=== PATIENT | male | born 1980 | race Caucasian/White ===

== ENCOUNTER 2017-06-23 09:09 | Emergency (ER) | payer BC, OTHER ==
[2017-06-23 10:08] VITALS: BP 122/67
--- NOTE | 2017-06-23 10:23 | UC ---
Hand/Wrist HPI - HPI Summary HPI Summary: patient has 1st and 2nd met pain and scaphoid tenderness and unknown mechanism, no fall or trauma. lasted for past few days - History Of Current Complaint Chief Complaint: UCUpperExtremity Stated Complaint: LEFT HAND PAIN Time Seen by Provider: 06/23/17 10:11 Hx Obtained From: Patient ?: No Onset/Duration: Sudden Onset, Lasting Days Severity Initially: Mild Severity Currently: Moderate Pain Intensity: 4 Character Of Pain: Aching Aggravating Factor(s): Movement Alleviating Factor(s): Nothing Associated Signs And Symptoms: Positive: Weakness - Risk Factors Compartment Syndrome Risk Factors: Pain - Allergies/Home Medications Allergies/Adverse Reactions: Allergies Allergy/AdvReac Type Severity Reaction Status Date / Time bacitracin Allergy Rash Verified 06/23/17 10:04 [From Neosporin ([id number])] neomycin Allergy Rash Verified 06/23/17 10:04 [From Neosporin ([id number])] polymyxin B Allergy Rash Verified 06/23/17 10:04 [From Neosporin ([id number]-uha-[id number])] bupropion [From Wellbutrin] AdvReac Anger and Verified 06/23/17 10:04 Unusual Dreams Home Medications: Home Medications Beta Rena 1 tab PO DAILY 06/23/17 [History] Vitamin THERAPEUTIC TAB* [Theragran TAB*] 1 tab PO DAILY 06/23/17 [History Confirmed 06/23/17] PMH/Surg Hx/FS Hx/Imm Hx Previously Healthy: Yes - Surgical History Surgical History: None - Family History Known Family History: Positive: Hypertension - Social History Alcohol Use: Weekly Substance Use Type: None Smoking Status (MU): Former Smoker Length of Time of Smoking/Using Tobacco: 1/2 PPD x 20+ Years When Did the Patient Quit Smoking/Using Tobacco: ~2013 Review of Systems Constitutional: Negative Skin: Negative Eyes: Negative ENT: Negative Respiratory: Negative Cardiovascular: Negative Gastrointestinal: Negative Genitourinary: Negative Motor: Negative Neurovascular: Negative Musculoskeletal: Arthralgia, Myalgia Neurological: Negative Psychological: Negative Is Patient Immunocompromised?: No All Other Systems Reviewed And Are Negative: Yes Physical Exam Triage Information Reviewed: Yes Appearance: Well-Appearing, Well-Nourished, Pain Distress Vital Signs: Initial Vital Signs Temp 98.4 F 06/23/17 10:01 Pulse 72 06/23/17 10:01 Resp 16 06/23/17 10:01 BP 122/67 06/23/17 10:01 Pulse Ox 99 06/23/17 10:01 Vital Signs Reviewed: Yes Eye Exam: Normal ENT Exam: Normal Dental Exam: Normal Neck exam: Normal Respiratory Exam: Normal Cardiovascular Exam: Normal Abdominal Exam: Normal Bowel Sounds: Positive: Present Musculoskeletal: Positive: Other: - prom painfree, AROM full, RROM painful in thumb adduction and pain radiated to scaphoid area, Neurological Exam: Normal Psychological Exam: Normal Skin Exam: Normal Hand/Wrist Course/Dx - Course Course Of Treatment: hx obtained, exam performed, meds reviewed, xray obtained, neg for fracture, - Differential Dx/Diagnosis Differential Diagnosis/HQI/PQRI: Contusion, Dislocation, Sprain, Strain, Tendonitis Provider Diagnoses: hand pain, muscle strain of the left hand Discharge - Discharge Plan Condition: Stable Disposition: HOME Patient Education Materials: Muscle Strain (ED) Referrals: MAK Walker [Primary Care Provider] - Dilan Luther MD [Medical Doctor] - Additional Instructions: . I recommend warm water soaks, 2-3 times a day. stretch the fingers thumbs and forearm 2-3 times a day. if the pain is not improving with stretching and rest follow up with the orthopedic.
--- NOTE | 2017-06-23 10:40 | RAD ---
INDICATION: Pain at the first and second metacarpal with scaphoid tenderness x4 days without reported injury COMPARISON: None. TECHNIQUE: 4 views left wrist. REPORT: The visualized bones are properly aligned and well corticated. The joint spaces are normal.There is no fracture, dislocation or other focal osseous abnormality. IMPRESSION: Normal radiograph of the left wrist. If the patient's symptoms persist, follow-up imaging is recommended.
== END 2017-06-23 11:04 | disposition home or self-care (01) ==
LOC: UCCORT 09:09
DX: S63.92XA Sprain of unspecified part of left wrist and hand, initial encounter (principal); X58.XXXD Exposure to other specified factors, subsequent encounter; Y92.9 Unspecified place or not applicable; Z87.891 Personal history of nicotine dependence
CPT/HCPCS: 99211; G0463

== ENCOUNTER 2017-08-07 13:12 | Emergency (ER) | payer BC, OTHER ==
[2017-08-07 15:16] VITALS: BP 131/90
[2017-08-07] MEDS ORDERED: Ondansetron ODT TAB* 4 MG PO ONE (15:48)
[2017-08-07] MEDS ORDERED: Famotidine TAB* 20 MG PO ONE (15:50)
--- NOTE | 2017-08-07 20:40 | UC ---
Forrest Deleon Nilda, scribed for Francis Baron MD on 08/07/17 at 1542 . Abdominal Pain Male HPI - HPI Summary HPI Summary: This patient is a 37 year old M presenting to [facility] [place] with a chief complaint of constant diffuse abd pain with diarrhea (watery, 12x today, black-dark brown) since this morning. The patient rates the cramping pain 4/10 in severity. Symptoms aggravated by nothing and alleviated by BM. Patient reports body aches , weakness, and nausea, but denies mucous in stool, bloody stool, fever, chills , and vomiting. He notes he was recently at a water park this weekend with family and everyone ate the same meals. He is the only person in the family presenting with symptoms. Patient denies recent colonoscopy, abx usage, and recent sick contacts. Patient notes he takes NSAIDs once per week for headaches and that he has had similar symptoms of diarrhea before. He is currently on medications for HTN as well as Lexapro for anxiety. Patient states he took Pepto Bismal this morning and that today he ate a banana, bread, and water. - History of Current Complaint Chief Complaint: UCGeneralIllness Stated Complaint: DIARRHEA, AND ACHES Time Seen by Provider: 08/07/17 15:22 Hx Obtained From: Patient Onset/Duration: Sudden Onset, Lasting Hours, Still Present Timing: Constant Severity Currently: Moderate Pain Intensity: 4 Pain Scale Used: 0-10 Numeric Location: Diffuse Radiates: No Character: Cramping Aggravating Factor(s): Nothing Alleviating Factor(s): Other - BM Associated Signs And Symptoms: Positive: Other - reports body aches, weakness, and nausea, but denies mucous in stool, bloody stool, fever, chills, and vomiting. - Allergies/Home Medications Allergies/Adverse Reactions: Allergies Allergy/AdvReac Type Severity Reaction Status Date / Time bacitracin Allergy Rash Verified 08/07/17 15:17 [From Neosporin ([id number])] neomycin Allergy Rash Verified 08/07/17 15:17 [From Neosporin (rub-tld-[id number])] polymyxin B Allergy Rash Verified 08/07/17 15:17 [From Neosporin (dvd-pmd-[id number])] bupropion [From Wellbutrin] AdvReac Anger and Verified 08/07/17 15:17 Unusual Dreams PMH/Surg Hx/FS Hx/Imm Hx Cardiovascular History: Hypertension Psychological History: Anxiety - Surgical History Surgical History: Yes Surgery Procedure, Year, and Place: heart catherization 2013 - Family History Known Family History: Positive: Cardiac Disease, Hypertension - Social History Alcohol Use: Rare Substance Use Type: None Smoking Status (MU): Former Smoker Length of Time of Smoking/Using Tobacco: 1/2 PPD x 20+ Years When Did the Patient Quit Smoking/Using Tobacco: ~2013 Review of Systems Constitutional: Other - negative fever and chills Gastrointestinal: Abdominal Pain, Diarrhea, Nausea, Other - negative vomiting, bloody stool, mucous in stool Musculoskeletal: Myalgia Neurological: Weakness All Other Systems Reviewed And Are Negative: Yes Physical Exam - Summary Physical Exam Summary: VITAL SIGNS: Reviewed. GENERAL: Patient is a well developed and nourished M who is lying comfortable in the stretcher. Patient is not in any acute respiratory distress. HEAD AND FACE: Normocephalic EYES: PERRLA, EOMI x 2. EARS: Hearing grossly intact. MOUTH: Oropharynx within normal limits. NECK: Supple, trachea is midline, no adenopathy, no JVD, no carotid bruit. CHEST: Symmetric, no tenderness at palpation LUNGS: Clear to auscultation bilaterally. No wheezing or crackles. CVS: Regular rate and rhythm, S1 and S2 present, no murmurs or gallops appreciated. ABDOMEN: Soft, non-tender. Increased bowel sounds diffusely. No abdominal abnormal pulsations. Rectal Exam: normal sphincter tone, no gross blood, no melena, no hemorrhoids. EXTREMITIES: Full ROM in all major joints, no edema, no cyanosis or clubbing. NEURO: Alert and oriented x 3. No acute neurological deficits. Speech is normal and follows commands. SKIN: Dry and warm Triage Information Reviewed: Yes Vital Signs: Initial Vital Signs Temp 98.0 F 08/07/17 15:11 Pulse 79 08/07/17 15:11 Resp 16 08/07/17 15:11 BP 131/90 08/07/17 15:11 Pulse Ox 97 08/07/17 15:11 Vital Signs Reviewed: Yes Re-Evaluation - Re-Evaluation First Eval Re-Evaluation Time: 16:06 Comment: Patient feels better. Reviewed D/C and treatment plan. Patient is agreeable to D/C. Abd Pain Male Course/Dx - Course Course Of Treatment: This patient is a 37 year old M presenting to [facility] [place] with a chief complaint of constant diffuse abd pain with diarrhea (watery, 12x today, black-dark brown) since this morning. The patient rates the cramping pain 4/10 in severity. Symptoms aggravated by nothing and alleviated by BM. Patient reports body aches, weakness, and nausea, but denies mucous in stool, bloody stool, fever, chills, and vomiting. He notes he was recently at a water park this weekend with family and everyone ate the same meals. He is the only person in the family presenting with symptoms. Patient denies recent colonoscopy, abx usage, and recent sick contacts. Patient notes he takes NSAIDs once per week for headaches and that he has had similar symptoms of diarrhea before. He is currently on medications for HTN as well as Lexapro for anxiety. Patient states he took Pepto Bismal this morning and that today he ate a banana, bread, and water. Medications reviewed. Allergies reviewed. In the UC course patient was given medications. I discussed all the findings and test results with the patient. Patient was instructed to return to the urgent care or go to ER immediately if any of the symptoms return or worsens. Plan of care was discussed with the patient, and patient understands and agrees. All questions were answered to patient satisfaction. There were no further complaints or concerns. The patient is hemodynamically stable, alert and oriented x3. The patient was found to have increase BP in UC. The patient will follow up with PCP for better control of BP. - Differential Dx/Clinical Impression Differential Diagnosis/HQI/PQRI: Other - Gastroenteriris, diarrhea, vomiting Provider Diagnoses: Nausea, vomiting and diarrhea Discharge - Sign-Out/Discharge Documenting (check all that apply): Discharge - Discharge Plan Condition: Improved Disposition: HOME Prescriptions: Famotidine TAB* [Pepcid 20 MG TAB*] 40 mg PO DAILY #15 tab Ondansetron TAB* [Zofran 4 MG Tab*] 4 mg PO Q6H PRN #12 tab PRN Reason: Vomiting Patient Education Materials: Gastroenteritis (ED) Referrals: MAK Walker [Primary Care Provider] - Additional Instructions: Increase IV fluids. Follow the brat Diet Take medications as recommended FOLLOW UP WITH YOUR PRIMARY CARE PROVIDER WITHIN ONE WEEK FOR HIGH BLOOD PRESSURE NOTED TODAY. - Billing Disposition and Condition Condition: IMPROVED Disposition: HOME The documentation as recorded by the Forrest romero Nilda accurately reflects the service I personally performed and the decisions made by me, Francis Baron MD.
== END 2017-08-07 16:18 | disposition home or self-care (01) ==
LOC: UCEAST 13:12
DX: R11.2 Nausea with vomiting, unspecified (principal); R19.7 Diarrhea, unspecified; R10.84 Generalized abdominal pain; M79.1 Myalgia; R53.1 Weakness; I10 Essential (primary) hypertension; F41.9 Anxiety disorder, unspecified; Z88.3 Allergy status to other anti-infective agents; Z87.891 Personal history of nicotine dependence
CPT/HCPCS: 82270; 99212; A9270-GY; G0463

== ENCOUNTER 2017-11-30 12:12 | Emergency (ER) | payer BC, OTHER ==
[2017-11-30 12:51] VITALS: BP 140/81
--- NOTE | 2017-11-30 13:01 | UC ---
Eye Complaint HPI - HPI Summary HPI Summary: This pt is a 37 y/o male presenting to [facility] c/o pruritic right eye since this morning. Pt denies any injury or trauma to his eye. Additionally he states his right eye became red today. Pt denies any eye pain, impaired vision, fever, drainage. He does have 2 kids but reports none of them have pink eye. - History of Current Complaint Chief Complaint: UCEye Stated Complaint: EYE COMPLAINT Time Seen by Provider: 11/30/17 12:44 Hx Obtained From: Patient Onset/Duration: Lasting Hours, Still Present Timing: Hours Severity Currently: None Pain Intensity: 0 Pain Scale Used: 0-10 Numeric Location of Injury: Other - No injuries or trauma Aggravating Factor(s): Nothing Alleviating Factor(s): Nothing Associated Signs And Symptoms: Negative: Photophobia, Drainage (Clear), Drainage (Purulent), Vision Impairment Bilateral, Vision Impairment Right, Vision Impairment Left, Fever, Swelling - Allergies/Home Medications Allergies/Adverse Reactions: Allergies Allergy/AdvReac Type Severity Reaction Status Date / Time bacitracin Allergy Rash Verified 11/30/17 12:52 [From Neosporin ([id number])] neomycin Allergy Rash Verified 11/30/17 12:52 [From Neosporin ([id number]-ulc-wjsde)] polymyxin B Allergy Rash Verified 11/30/17 12:52 [From Neosporin (raf-zma-[id number])] bupropion [From Wellbutrin] AdvReac Anger and Verified 11/30/17 12:52 Unusual Dreams Home Medications: Home Medications Metoprolol Succinate XL TAB* [Toprol XL TAB*] 50 mg PO DAILY 11/30/17 [History Confirmed 11/30/17] PMH/Surg Hx/FS Hx/Imm Hx Other Endocrine History: DENIES: diabetes Other Cardiovascular History: DENIES: HTN GI/ History: Gastroesophageal Reflux Psychological History: Anxiety, Depression, Post Traumatic Stress Disorder - Surgical History Surgical History: Yes Surgery Procedure, Year, and Place: heart catherization 2013 - Family History Known Family History: Positive: Cardiac Disease, Hypertension - Social History Alcohol Use: Rare Substance Use Type: None Smoking Status (MU): Former Smoker Length of Time of Smoking/Using Tobacco: 1/2 PPD x 20+ Years When Did the Patient Quit Smoking/Using Tobacco: ~2013 Review of Systems Constitutional: Negative Skin: Negative Eyes: Other - right eye pruritic ENT: Negative Respiratory: Negative Cardiovascular: Negative Gastrointestinal: Negative Genitourinary: Negative Motor: Negative Neurovascular: Negative Musculoskeletal: Negative Neurological: Negative Psychological: Negative All Other Systems Reviewed And Are Negative: Yes Physical Exam - Summary Physical Exam Summary: VITAL SIGNS: Reviewed. GENERAL: Patient is a well-developed and nourished male who is lying comfortable in the stretcher. Patient is not in any acute respiratory distress. HEAD AND FACE: Normocephalic EYES: PERRLA, EOMI x 2. Injected conjunctiva on the right. EARS: Hearing grossly intact. MOUTH: Oropharynx within normal limits. NECK: Supple, trachea is midline, no adenopathy, no JVD, no carotid bruit. CHEST: Symmetric, no tenderness at palpation LUNGS: Clear to auscultation bilaterally. No wheezing or crackles. CVS: Regular rate and rhythm, S1 and S2 present, no murmurs or gallops appreciated. ABDOMEN: Soft, non-tender. Bowel sounds are normal. No abdominal abnormal pulsations. EXTREMITIES: Full ROM in all major joints, no edema, no cyanosis or clubbing. NEURO: Alert and oriented x 3. No acute neurological deficits. Speech is normal and follows commands. SKIN: Dry and warm Triage Information Reviewed: Yes Vital Signs: Initial Vital Signs Temp 98.2 F 11/30/17 12:49 Pulse 55 11/30/17 12:49 Resp 17 11/30/17 12:49 BP 140/81 11/30/17 12:49 Pulse Ox 99 11/30/17 12:49 Vital Signs Reviewed: Yes Eye Complaint Course/Dx - Course Course Of Treatment: Pt is a 37 y/o male presenting to [facility] c/o pruritic right eye since this morning. Pt denies any injury or trauma to his eye. Additionally he states his right eye became red today. Pt denies any eye pain, impaired vision, fever, drainage. He does have 2 kids but reports none of them have pink eye. Exam is consistent with conjunctivitis. Pt will be discharged home with prescriptions for ciprofloxacin opth and olopatadine opth. Pt was instructed to return to the urgent care or go to ER immediately if any of the symptoms return or worsens. Plan of care was discussed with the patient and pt understands and agrees. All questions were answered to patient satisfaction. There were no further complaints or concerns. Pt will be discharged to home with follow up from PCP. Pt is hemodynamically stable, alert and oriented x3. The patient was found to have increased blood pressure in UC. The patient will follow up with PCP for better control of BP. - Differential Dx/Diagnosis Provider Diagnoses: Conjunctivitis Discharge - Sign-Out/Discharge Documenting (check all that apply): Patient Departure - Discharge - Discharge Plan Condition: Stable Disposition: HOME Prescriptions: Ciprofloxacin 0.3% OPTH.CRISTY* [Cipro 0.3% Opth*] 1 drop RIGHT EYE Q2H #1 btl Olopatadine 0.1% OPHTH (NF) [Patanol 0.1% OPHTH (NF)] 1 drop RIGHT EYE DAILY PRN #1 btl PRN Reason: Itching Patient Education Materials: Conjunctivitis (ED) Referrals: No Primary Care Phys,NOPCP [Primary Care Provider] - Additional Instructions: FOLLOW UP WITH YOUR PRIMARY CARE PROVIDER WITHIN ONE WEEK FOR HIGH BLOOD PRESSURE NOTED TODAY. RETURN TO URGENT CARE OR THE ED FOR ANY WORSENING OR NEW SYMPTOMS. Take medications as instructed and adhere to plan Take Acetaminophen or ibuprofen for pain or fever Increase your fluid intake Return to the UC or go to the emergency department if symptoms worsen Follow-up with primary care physician in next 2-3 days
== END 2017-11-30 13:05 | disposition home or self-care (01) ==
LOC: UCEAST 12:12
DX: H10.31 Unspecified acute conjunctivitis, right eye (principal); K21.9 Gastro-esophageal reflux disease without esophagitis; F41.9 Anxiety disorder, unspecified; F32.9 Major depressive disorder, single episode, unspecified; F43.10 Post-traumatic stress disorder, unspecified; Z88.3 Allergy status to other anti-infective agents; Z88.8 Allergy status to other drugs, medicaments and biological substances; Z82.49 Family history of ischemic heart disease and other diseases of the circulatory system; Z87.891 Personal history of nicotine dependence
CPT/HCPCS: 99212; G0463

== ENCOUNTER 2018-05-21 13:36 | Emergency (ER) | payer BC, OTHER ==
[2018-05-21 15:21] VITALS: BP 139/90
--- NOTE | 2018-05-21 16:05 | UC ---
Throat Pain/Nasal Ulysses HPI - History of Current Complaint Chief Complaint: UCRespiratory Stated Complaint: COUGH,BILATERAL EARS Time Seen by Provider: 05/21/18 15:12 Pain Intensity: 2 - Allergies/Home Medications Allergies/Adverse Reactions: Allergies Allergy/AdvReac Type Severity Reaction Status Date / Time bacitracin Allergy Rash Verified 05/21/18 15:16 [From Neosporin ([id number]-pql-[id number])] neomycin Allergy Rash Verified 05/21/18 15:16 [From Neosporin ([id number])] polymyxin B Allergy Rash Verified 05/21/18 15:16 [From Neosporin ([id number]-pgc-[id number])] bupropion [From Wellbutrin] AdvReac Anger and Verified 05/21/18 15:16 Unusual Dreams Home Medications: Home Medications D-Methorphan/PE/Acetaminophen [Daytime Cold Multi-Symp Gelcap] 2 each PO Q4H PRN 05/21/18 [History Confirmed 05/21/18] Alton-3 Fatty Acids/Fish Oil [Fish Oil 1,000 mg Capsule] 1 each PO DAILY [History Confirmed 05/21/18] PMH/Surg Hx/FS Hx/Imm Hx Previously Healthy: Yes Cardiovascular History: Cardiac Disease - Surgical History Surgical History: Yes Surgery Procedure, Year, and Place: heart catherization 2013 - Family History Known Family History: Positive: Cardiac Disease, Hypertension - Social History Occupation: Employed Full-time Lives: With Family Alcohol Use: Rare Substance Use Type: None Smoking Status (MU): Former Smoker Length of Time of Smoking/Using Tobacco: 1/2 PPD x 20+ Years When Did the Patient Quit Smoking/Using Tobacco: ~2013 Review of Systems All Other Systems Reviewed And Are Negative: Yes Constitutional: Negative: Fever, Chills Skin: Negative: Rash Eyes: Negative: Drainage, Eye Redness ENT: Positive: Sore Throat, Ear Ache, Nasal Discharge, Sinus Congestion, Sinus Pain/Tenderness Respiratory: Positive: Cough. Negative: Shortness Of Breath Cardiovascular: Negative: Palpitations, Chest Pain Gastrointestinal: Negative: Abdominal Pain, Vomiting, Diarrhea, Nausea Genitourinary: Positive: Negative Musculoskeletal: Positive: Negative Neurological: Positive: Negative Is Patient Immunocompromised?: No Physical Exam - Summary Physical Exam Summary: GENERAL APPEARANCE: Well developed, well nourished, alert and cooperative, and appears to be in no acute distress. EYES: Conjunctiva clear. No discharge. Vision is grossly intact. EARS: External auditory canals and tympanic membranes clear, hearing grossly intact. NOSE: Mild-moderate nasal congestion. No nasal discharge. Mild tenderness maxillary sinuses with percussion. THROAT: Oral cavity and pharynx normal. No inflammation, swelling, exudate, or lesions. Teeth and gingiva in good general condition. NECK: Neck supple, non-tender without lymphadenopathy. CARDIAC: Normal S1 and S2. No S3, S4 or murmurs. Rhythm is regular. There is no peripheral edema, cyanosis or pallor. Extremities are warm and well perfused. Capillary refill is less than 2 seconds. LUNGS: Clear to auscultation and percussion without rales, rhonchi, wheezing or diminished breath sounds. ABDOMEN: Positive bowel sounds. Soft, nondistended, nontender. No guarding or rebound. No masses or hepatosplenomegally. MUSKULOSKELETAL: ROM intact to all extremities. No joint erythema or tenderness. Normal muscular development. Normal gait. SKIN: Skin normal color, texture and turgor with no lesions or eruptions. Triage Information Reviewed: Yes Vital Signs: Initial Vital Signs Temp 97.3 F 05/21/18 15:17 Pulse 80 05/21/18 15:17 Resp 16 05/21/18 15:17 BP 139/90 05/21/18 15:17 Pulse Ox 98 05/21/18 15:17 Vital Signs Reviewed: Yes Throat Pain/Nasal Course/Dx - Course Course Of Treatment: 38-year-old male presents with 4 week history of nasal congestion, green nasal discharge, sinus pressure, bilateral ear pain, mild sore throat and occasional productive cough for green sputum. Denies fever, chills, dysphagia, chest pain, shortness of breath, wheezing, abdominal pain, nausea, vomiting, or diarrhea. His 1-year-old son was treated about a month ago for croup but has had a continued cough for the past 4 weeks. Afebrile. Vital signs stable. Exam revealed mild to moderate nasal congestion with mucosal erythema and edema, mild maxillary tenderness with percussion, mild pharyngeal erythema with cobblestoning, clear bilateral breath sounds, but otherwise unremarkable exam. Considering the duration of his symptoms I will treat for an acute sinusitis with amoxicillin 875 mg twice a day 10 days as well as symptomatic treatment including saline rinses, fluticasone nasal spray, and [id number]-[id number] Sudafe He is to return here or follow up with primary care provider in 7 days if symptoms persist. Warning symptoms were reviewed with the patient. Verbalizes understanding and agrees with plan of care. - Differential Dx/Diagnosis Differential Diagnosis/HQI/PQRI: Otitis Media, Pharyngitis, Sinusitis, Tonsillitis, URI Provider Diagnosis: Acute sinusitis Discharge - Sign-Out/Discharge Documenting (check all that apply): Patient Departure All imaging exams completed and their final reports reviewed: No Studies - Discharge Plan Condition: Stable Disposition: HOME Prescriptions: Amoxicillin PO (*) [Amoxicillin 875 MG (*)] 875 mg PO BID #20 tab Fluticasone NASAL SPRAY 50MCG* [Flonase NASAL SPRAY 50MCG*] 2 spray BOTH NARES DAILY #1 btl Patient Education Materials: Sinusitis (ED) Referrals: No Primary Care Phys,NOPCP [Primary Care Provider] - Additional Instructions: Your history and exam are consistent with a sinus infection. Sinus infections without fever are most often caused by a viral infection. Viral infections do not respond to antibiotics and are limited to the treatment of symptoms. Viral infections typically run their course in 7-10 days. Drink plenty of fluids to avoid dehydration especially if you are running any fever. Use a saline rinse kit such as Neti Pot or NeilMed at least twice a day to help thin secretions and promote drainage of the sinuses. Use fluticasone (Flonase) nasal spray 2 sprays each nostril once daily. Use an over the counter decongestant such as Sudafed according to directions to help with congestion. Take over the counter acetaminophen (Tylenol) or ibuprofen (Advil, Motrin) according to directions as needed for pain or fever. Follow up with your primary care provider in 7 days if symptoms persist. Seek immediate medical attention in the emergency room if you have fever greater than 100.5 F despite taking acetaminophen or ibuprofen, have chest pain , difficulty breathing, are unable to swallow, or have any worsening of symptoms. - Billing Disposition and Condition Condition: STABLE Disposition: Home
== END 2018-05-21 16:39 | disposition home or self-care (01) ==
LOC: UCCORT 13:36
DX: J01.90 Acute sinusitis, unspecified (principal); Z88.1 Allergy status to other antibiotic agents; Z88.8 Allergy status to other drugs, medicaments and biological substances; Z87.891 Personal history of nicotine dependence
CPT/HCPCS: 99212; G0463

== ENCOUNTER 2018-07-31 19:08 | Emergency (ER) | payer BC, OTHER ==
[2018-07-31 19:54] VITALS: BP 140/70
--- NOTE | 2018-07-31 20:10 | UC ---
Throat Pain/Nasal Ulysses HPI - HPI Summary HPI Summary: 38-year-old male comes in with a chief complaint of bilateral ear pain. Been going on about day. He also has a cough. Minimal runny nose no sore throat. No chest congestion. No fevers. He's tried [id number] medicines which to help some with the symptoms. - History of Current Complaint Chief Complaint: UCEar Stated Complaint: EARS,HEAD CONGESTION Time Seen by Provider: 07/31/18 20:01 Pain Intensity: 4 - Allergies/Home Medications Allergies/Adverse Reactions: Allergies Allergy/AdvReac Type Severity Reaction Status Date / Time bacitracin Allergy Rash Verified 07/31/18 19:51 [From Neosporin ([id number])] neomycin Allergy Rash Verified 07/31/18 19:51 [From Neosporin ([id number])] polymyxin B Allergy Rash Verified 07/31/18 19:51 [From Neosporin ([id number]-jpd-[id number])] bupropion [From Wellbutrin] AdvReac Anger and Verified 07/31/18 19:51 Unusual Dreams Home Medications: Home Medications Phenylephrine/Dm/Acetaminop/GG [Mucinex Fast-Max Cold Flu] 1 liq PO ONCE [History Confirmed 07/31/18] PMH/Surg Hx/FS Hx/Imm Hx Previously Healthy: Yes - Surgical History Surgical History: Yes Surgery Procedure, Year, and Place: heart catherization 2013 - Family History Known Family History: Positive: Cardiac Disease, Hypertension - Social History Alcohol Use: Rare Substance Use Type: None Smoking Status (MU): Former Smoker Length of Time of Smoking/Using Tobacco: 1/2 PPD x 20+ Years When Did the Patient Quit Smoking/Using Tobacco: ~2013 Review of Systems All Other Systems Reviewed And Are Negative: Yes Constitutional: Positive: Negative Skin: Positive: Negative Eyes: Positive: Negative ENT: Positive: Ear Ache Respiratory: Positive: Cough Cardiovascular: Positive: Negative Gastrointestinal: Positive: Negative Motor: Positive: Negative Neurovascular: Positive: Negative Musculoskeletal: Positive: Negative Neurological: Positive: Negative Psychological: Positive: Negative Is Patient Immunocompromised?: No Physical Exam Triage Information Reviewed: Yes Appearance: Well-Appearing, No Pain Distress, Well-Nourished Vital Signs: Initial Vital Signs Temp 97.9 F 07/31/18 19:50 Pulse 91 07/31/18 19:50 Resp 16 07/31/18 19:50 BP 140/70 07/31/18 19:50 Pulse Ox 98 07/31/18 19:50 Vital Signs Reviewed: Yes Eye Exam: Normal Eyes: Positive: Conjunctiva Clear ENT: Positive: Pharynx normal, TM bulging - B/L, TM red - B/L, Uvula midline Neck exam: Normal Neck: Positive: Supple Respiratory: Positive: Lungs clear, Normal breath sounds, No respiratory distress Cardiovascular: Positive: RRR Neurological Exam: Normal Neurological: Positive: Alert, Muscle Tone Normal Psychological Exam: Normal Psychological: Positive: Age Appropriate Behavior Skin Exam: Normal Throat Pain/Nasal Course/Dx - Differential Dx/Diagnosis Provider Diagnosis: Acute serous otitis media of both ears Discharge - Sign-Out/Discharge Documenting (check all that apply): Patient Departure All imaging exams completed and their final reports reviewed: No Studies - Discharge Plan Condition: Stable Disposition: HOME Prescriptions: Amoxicillin PO (*) [Amoxicillin 875 MG (*)] 875 mg PO BID #20 tab Patient Education Materials: Serous Otitis Media (ED) Referrals: MAK Walker [Primary Care Provider] - Additional Instructions: FOLLOW UP WITH YOUR DOCTOR IF NOT COMPLETELY IMPROVED. GET RECHECKED FOR ANY WORSENING OF YOUR CONDITION OR QUESTIONS OR CONCERNS. - Billing Disposition and Condition Condition: STABLE Disposition: Home
== END 2018-07-31 20:15 | disposition home or self-care (01) ==
LOC: UCCORT 19:08
DX: H65.03 Acute serous otitis media, bilateral (principal); Z88.1 Allergy status to other antibiotic agents; Z88.8 Allergy status to other drugs, medicaments and biological substances; Z87.891 Personal history of nicotine dependence
CPT/HCPCS: 99212; G0463

== ENCOUNTER 2019-04-28 18:08 | Emergency (ER) | payer BC, OTHER ==
--- OUTSIDE RECORDS SUMMARY | 2019-04-28 19:06 | XMS REPORT | Continuity of Care Document ---
:1980 External Reference #:[id number] Author Name Althea Lara M.D. 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 Onset: 02/28/2019 Social History Type Date Description Comments Sex Unknown Tobacco Use Start: Unknown Never Smoked Cigarettes ETOH Use Occasionally consumes alcohol Tobacco Use Start: Unknown End: Unknown Patient is a former smoker Smoking Status Reviewed: 02/21/19 Patient is a former smoker Allergies, Adverse Reactions, Alerts Active Allergies Reaction Severity Comments Date Neosporin Urticaria 04/30/2017 Medications Active Medications SIG Qnty Indications Ordering Provider Date Multi-Vitamin 1 by mouth every Unknown Tablets day Fish Oil 1 by mouth Unknown 1000mg everyday Capsules Lexapro 1 by mouth every Unknown 20mg Tablets day Hydroxyzine HCL 1 po as needed Unknown 25mg Tablets History Medications Bisacodyl Ec at 6:30 at night on 4tabs [facility], 09/05/2018 - 5mg the day before your Elai Epps M.D. 12/16/2018 Tablets colonoscopy take all 4 bisacodyl tablets Magnesium Citrate 1 at night on the 296ml [facility], 09/05/2018 - day before your Elia Epps M.D. 12/16/2018 1.745GM/30ML colonoscopy drink Solution entire bottle of magnesium citrate Immunizations Description No Information Available Vital Signs Date Vital Result Comment 02/28/2019 8:41am BP Systolic 143 mmHg BP Diastolic 80 mmHg Body Temperature 98.1 F Heart Rate 101 /min Respiratory Rate 20 /min Height 68 inches 5'8" Weight 196.00 lb BMI (Body Mass Index) 29.8 kg/m2 BSA (Body Surface Area) 2.03 m2 [place] body weight in kilograms 70 kg O2 % BldC Oximetry 97 % 12/16/2018 8:59am BP Systolic 123 mmHg BP Diastolic 79 mmHg Heart Rate 82 /min Height 68 inches 5'8" Weight 164.00 lb BMI (Body Mass Index) 24.9 kg/m2 BSA (Body Surface Area) 1.88 m2 [place] body weight in kilograms 70 kg O2 % BldC Oximetry 97 % Results Test Date Facility Test Result H/L Range Note Urine Dipstick 02/28/2019 [facility] Color yellow Yellow [facility] Clarity clear Clear [facility] Leuko neg Negative Ua Nitrite neg Negative Ua Urobilinogen .2 0.2 - 1.0 E.U./dL Ua Protein neg Negative Ua PH 6.0 Low 6.5-7.5 Ua Blood neg Negative Ua Specific [place] 1.020 1.010-1.030 Ua Ketones neg Negative Ua Bilirubin neg Negative Ua Glucose neg Negative Procedures Date Code Description Status 12/06/2018 57536 Colonoscopy With Polypectomy Completed 12/06/2018 18367 Colonoscopy With Biopsy Completed 10/19/2018 50957028 Colonoscopy Completed Medical Devices Description No Information Available Encounters Type Date Location Provider Dx Diagnosis Office Visit 12/16/2018 Surgical Office [facility] Z12.11 Encounter for 9:00a wayne Rosas for [place] malignant neoplasm of colon K63.5 Polyp of colon Z80.0 Family history of malignant neoplasm of digestive organs Office Visit 09/05/2018 2:00p [facility], [place], D17.9 Benign lipomatous PA neoplasm, unspecified Z12.11 Encounter for screening for malignant neoplasm of colon 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 12/16/2018 Z12.11 Encounter for screening for Elia Andrea M.D. malignant neoplasm of colon 12/16/2018 K63.5 Polyp of colon Elia Andrea M.D. 12/16/2018 Z80.0 Family history of malignant Elia Andrea M.D. neoplasm of digestive organs 12/06/2018 Z12.11 Encounter for screening for Elia Andrea M.D. malignant neoplasm of colon 12/06/2018 D12.8 Benign neoplasm of rectum Elia Andrea M.D. 12/06/2018 K63.5 Polyp of colon Elia Andrea M.D. 12/06/2018 Z80.0 Family history of malignant Elia Andrea M.D. neoplasm of digestive organs 12/06/2018 Z83.71 Family history of colonic polyps Elia Andrea M.D. 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 He brings one today we'll send this for analysis. I'll order a CT scan to assess his stone volume. He is to follow-up after the CT scan. We'll also need to set him up for 24-hour urine collection to assess his risk factors. Functional Status Description No Information Available Mental Status Description No Information Available Referrals Description No Information Available
[2019-04-28 19:15] VITALS: BP 133/58
--- NOTE | 2019-04-28 19:19 | UC ---
Skin Complaint HPI - HPI Summary HPI Summary: Patient is a 39yo male presenting with c/o splinter in his right ring finger x1 day. Patient states splinter is from pressure treated wood. Patient notes tenderness to touch. Notes bleeding earlier with "clear fluid" while he tried to "dig it out with a needle." States he tried warm compress and when that didn' t work he "put the needle a quarter inch deep into his finger to try to get the splinter out." UTD on tetanus. - History of Current Complaint Chief Complaint: UCForeignBody Stated Complaint: RIGHT RING FINGER FOREIGN BODY Hx Obtained From: Patient Onset/Duration: Sudden Onset Current Severity: Mild Pain Intensity: 2 Pain Scale Used: 0-10 Numeric - Allergy/Home Medications Allergies/Adverse Reactions: Allergies Allergy/AdvReac Type Severity Reaction Status Date / Time bacitracin Allergy Rash Verified 04/28/19 19:09 [From Neosporin ([id number])] neomycin Allergy Rash Verified 04/28/19 19:09 [From Neosporin (rrx-abl-tbugb)] polymyxin B Allergy Rash Verified 04/28/19 19:09 [From Neosporin ([id number]-whk-zbwsh)] bupropion [From Wellbutrin] AdvReac Anger and Verified 04/28/19 19:09 Unusual Dreams Home Medications: Home Medications Ibuprofen TAB* [Advil TAB*] 400 mg PO Q6H PRN 04/28/19 [History Confirmed ] PMH/Surg Hx/FS Hx/Imm Hx Previously Healthy: Yes - Surgical History Surgical History: Yes Surgery Procedure, Year, and Place: heart catherization 2013 - Family History Known Family History: Positive: Cardiac Disease, Hypertension - Social History Alcohol Use: Weekly Substance Use Type: None Smoking Status (MU): Former Smoker Length of Time of Smoking/Using Tobacco: 1/2 PPD x 20+ Years When Did the Patient Quit Smoking/Using Tobacco: ~2013 Review of Systems All Other Systems Reviewed And Are Negative: No Constitutional: Positive: Negative Skin: Positive: Other - splinter in R ring finger Respiratory: Positive: Negative Cardiovascular: Positive: Negative Gastrointestinal: Positive: Negative Musculoskeletal: Positive: Negative. Negative: Arthralgia, Decreased ROM, Edema Neurological: Negative: Paresthesia, Numbness Physical Exam Triage Information Reviewed: Yes Appearance: Well-Appearing, No Pain Distress, Well-Nourished Vital Signs: Initial Vital Signs Temp 98.1 F 04/28/19 19:11 Pulse 85 04/28/19 19:11 Resp 16 04/28/19 19:11 BP 133/58 04/28/19 19:11 Pulse Ox 98 04/28/19 19:11 Vital Signs Reviewed: Yes Eyes: Positive: Conjunctiva Clear ENT: Positive: Hearing grossly normal Neck: Positive: Supple Respiratory: Positive: No respiratory distress Cardiovascular: Positive: Pulses Normal, Brisk Capillary Refill - <2 sec Musculoskeletal: Positive: Strength Intact - R ring finger, ROM Intact - R ring finger flexion/extension, Edema @ - minimal edema noted of R ring fingertip Neurological Exam: Other - sensation grossly intact Neurological: Positive: Alert Psychological: Positive: Age Appropriate Behavior Skin: Positive: Other - pinpoint area of dried blood beneath skin noted on R ring fingertip surrounded by 1cm circumference of erythema and warmth. no visible foreign body. no drainage or active bleeding. no fluctuance. mild tenderness to palpation. Course/Dx - Course Course Of Treatment: Discussed splinters with patient and likeliness of his body pushing it out without treatment. No visible foreign body so I did not go searching, as to avoid causing greater infection. Instructed patient not to go searching for it with a needle or any other object. Instructed to continue with warm soaks and take Keflex as prescribed to treat possible infection. Told patient to follow up with surgery if symptoms persist longer than a few weeks. Patient voiced understanding and agreed with treatment plan. - Diagnoses Provider Diagnosis: Splinter of finger Discharge ED - Sign-Out/Discharge Documenting (check all that apply): Patient Departure All imaging exams completed and their final reports reviewed: No Studies - Discharge Plan Condition: Stable Disposition: HOME Prescriptions: Cephalexin CAP* [Keflex CAP*] 500 mg PO TID #15 cap Patient Education Materials: Soft Tissue Foreign Body (ED) Referrals: Lisseth Smith MD [Medical Doctor] - If Needed Additional Instructions: As discussed, the splinter may come out on its own without treatment. Take Keflex as prescribed to treat infection. Do not continue to try to remove it. This puts you at greater risk for worsening infection. Continue with warm soaks/compresses 2-3 times daily. Follow up with the referral listed below if your symptoms do not resolve within 2-3 weeks. - Billing Disposition and Condition Condition: STABLE Disposition: Home
== END 2019-04-28 19:37 | disposition home or self-care (01) ==
LOC: UCCORT 18:08
DX: S60.454A Superficial foreign body of right ring finger, initial encounter (principal); Z88.1 Allergy status to other antibiotic agents; Z88.8 Allergy status to other drugs, medicaments and biological substances; Z87.891 Personal history of nicotine dependence; X58.XXXA Exposure to other specified factors, initial encounter; Y92.9 Unspecified place or not applicable
CPT/HCPCS: 99212; G0463